=== PATIENT | female | born 1945 | race African-American/Black ===

== ENCOUNTER 2025-02-10 18:36 | Inpatient (IN) | payer OTHER, MEDICAID ==
[~2025-02-10] VITALS: Ht 152.4 cm; Wt 81.5 kg
[2025-02-10 18:55] VITALS: PULSE 130; RESP 17; O2SAT 96
[2025-02-10 19:19] VITALS: PULSE 123; RESP 13; O2SAT 97
[2025-02-10] MEDS: SODIUM CHLORIDE 0.9% 1,000 ML IV ONE (19:30)
[2025-02-10] MEDS: INSULIN LANTUS (GLARGINE) 1 /0.01ml (100units/ml) SC ONE (19:45)
[2025-02-10] MEDS ORDERED: DEXTROSE (50%) 50ML SYRG IV PRN (19:45)
[2025-02-10 19:57] LABS: Hematocrit 43.2 % (36.0-46.0); Hemoglobin 14.0 g/dL (12.2-16.2); Mean Corpuscular Hemoglobin 29.1 pg (28.0-32.0); Mean Corpuscular Volume 89.8 fL (80.0-100.0); Nucleated Red Blood Cells % 0.1 %
[2025-02-10 20:00] VITALS: PULSE 70
--- NOTE | 2025-02-10 20:00 | ED.PDOC ---
History of present illness HPI Comments 79 y/o F, with PMHx of DM, presents to the ED for CC of hyperglycemia. EMS reports, patient is coming from home where family called d/t patient being lethargic and unarousable. Per EMS, patient's blood sugar read high on glucometer which only reads up to 600. Per family, patient suffers from frequent hyperglycemic episodes and blood sugar runs in the 400's on baseline. Upon arrival to the ED, patient is A&Ox2 and history is limited. 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 Family History Family History: Unknown Social History Smoker: Non-Smoker Alcohol: Denies ETOH Use Drugs: Denies Drug Use Lives In: Home Unable to Obtain due to: Other (hyperglycemia, a&ox2) Physical Exam General Appearance: No Apparent Distress, Normal, Other (lethargic) HEENT: Normal ENT Inspection, Pharynx Normal Neck: Full Range of Motion, Non-Tender, Normal, Normal Inspection Respiratory: Chest Non-Tender, Lungs Clear, No Accessory Muscle Use, No R espiratory Distress, Normal Breath Sounds Cardiovascular: No Edema, No Murmur, No Gallop, Normal Peripheral Pulses, Regular Rate/Rhythm Breast Exam: Deferred Gastrointestinal: No Organomegaly, Non Tender, No Pulsatile Mass, Normal Bowel Sounds, Soft Genitalia: Deferred Pelvic: Deferred Rectal: Deferred Extremities: No calf tenderness, Normal capillary refill, Normal inspection, Normal range of motion, Non-tender, No pedal edema Musculoskeletal : Apperance: Normal Neurologic: compensation expert II-XII nml as Tested, No Motor Deficits, Normal Affect, Normal Mood, No Sensory Deficits, Other (A&Ox2) Cerebellar Function: Normal Reflexes: Normal Skin: Dry, Normal Color, Warm Lymphatic: No Adenopathy Was a procedure done? Was a procedure done?: No Differential Diagnosis (DM) Differential Diagnosis: Dehydration, Diabetic Coma, DKA, Electrolyte Abnormality, Encephalopathy, Hyperglycemia, Hyperosmolar State, UTI X-Ray, Labs, Meds, VS Vital Signs Date Time Temp Pulse Resp B/P (MAP) Pulse Ox O2 Delivery O2 Flow Rate FiO2 02/10/25 23:30 117 15 99/57 (71) 98 02/10/25 23:00 123 17 112/66 (81) 98 02/10/25 22:45 120 15 104/60 (75) 98 02/10/25 22:30 123 15 110/60 (77) 97 02/10/25 22:15 122 15 110/60 (77) 97 02/10/25 22:00 120 15 101/60 (74) 97 02/10/25 21:45 120 15 92/59 (70) 98 02/10/25 21:24 123 17 118/65 (82) 97 02/10/25 19:19 123 13 97 Room Air* 2 N/A Nasal Cannula* Bi-Pap+ 02/10/25 19:18 98.5 128 16 111/63 (79) 98.5 02/10/25 19:01 97.6 133 19 120/78 95 97.6 02/10/25 18:55 98.0 130 17 131/70 (90) 96 98.0 02/10/25 18:55 130 17 96 Nasal Cannula* 2 28 Lab Test 02/10/25 22:33 02/10/25 21:57 02/10/25 20:41 02/10/25 20:18 Range/Units POC Glucose 182 H 219 H 326 H 70-106 mg/dl Troponin I High Sensitivity 21 </=34 ng/L Test 02/10/25 19:44 Range/Units White Blood Count 8.1 4.4-10.8 10^3/uL Red Blood Count 4.80 4.0-5.20 10^6/uL Hemoglobin 14.0 12.2-16.2 g/dL Hematocrit 43.2 36.0-46.0 % Mean Corpuscular Volume 89.8 80.0-100.0 fL Mean Corpuscular Hemoglobin 29.1 28.0-32.0 pg Mean Corpuscular Hemoglobin Concent 32.4 32.0-36.0 g/dL Red Cell Distribution Width 14.2 11.8-14.3 % Platelet Count 247 140-450 10^3/uL Mean Platelet Volume 8.8 6.9-10.8 fL Neutrophils (%) (Auto) 80.0 37.0-80.0 % Lymphocytes (%) (Auto) 11.1 10.0-50.0 % Monocytes (%) (Auto) 8.4 0.0-12.0 % Eosinophils (%) (Auto) 0.0 0.0-7.0 % Basophils (%) (Auto) 0.5 0.0-2.0 % Neutrophils # (Auto) 6.5 1.6-8.6 10 ^3/uL Lymphocytes # (Auto) 0.9 0.4-5.4 10 ^3/uL Monocytes # (Auto) 0.7 0-1.3 10 ^3/uL Eosinophils # (Auto) 0 0-0.8 10 ^3/uL Basophils # (Auto) 0 0-0.2 10 ^3/uL Nucleated Red Blood Cells 0.1 % Sodium Level 144 136-145 mmol/L Potassium Level 4.5 3.5-5.1 mmol/L Chloride Level 105 98-107 mmol/L Carbon Dioxide Level < 10 *L 20-31 mmol/L Anion Gap 29.37914 H 5-15 Blood Urea Nitrogen 38 H 9-23 mg/dL Creatinine 2.67 H 0.550-1.02 mg/dL Glomerular Filtration Rate Calc 18 >90 mL/min BUN/Creatinine Ratio 14.2 10.0-20.0 Serum Glucose 387 H 74-106 mg/dL Calcium Level 10.2 8.7-10.4 mg/dL Troponin I High Sensitivity 19 </=34 ng/L Current Medications Medications (Trade) Dose Ordered Sig/Tino Route Start Time Stop Time Status Last Admin Sodium Chloride 1,000 ml @ 150 mls/hr Q6H40M ONCE IV 02/10/25 19:30 02/11/25 02:09 02/10/25 19:30 Insulin Human (Reg)/Sodium Chloride 100 ml @ 0.5 mls/hr Q24H IV 02/10/25 19:45 02/10/25 21:03 Insulin Glargine (Lantus) 15 units ONCE ONCE SC 02/10/25 19:45 02/10/25 19:57 DC 02/10/25 19:45 Diagnostic Test (Pha) (Accu-Chek Comfort Curve T) 1 strip Q90MIN 02/10/25 22:30 02/11/25 00:[address] [address] Ph: [phone] DIAGNOSTIC IMAGING Diagnostic Imaging Report : [id number] Signed PATIENT: ANALIA WYATT ACCT: [id number] UNIT: [id number] : 1945 LOC: ER ROOM / BED: / AGE / SEX: 79 / F ADM STATUS: REG ER SERVICE 28 ORDERING PHYSICIAN: JOSIAH HUYNH MD PROCEDURE(s): CXRP - CHEST PORTABLE REASON: altered ORDER NUMBER(s): [id number], ACCESSION NUMBER(s): [id number] CHEST RADIOGRAPH INDICATION: altered TECHNIQUE: Single frontal view of the chest was obtained COMPARISON: None FINDINGS: Lines and Tubes: Metallic device over the right clavicle correlate clinically for postsurgical change versus artifact overlying the clavicle. Lungs: No focal consolidation. Pleura: No effusion. No pneumothorax. Cardiomediastinal contours: Unremarkable Bones: No acute osseous abnormality. IMPRESSION: 1. No acute cardiopulmonary disease. 2. Questionable artifact over the right clavicle. ATED BY: VIDAL BRADY Jr., DO DICTATED DATE/TIME: 02/10/252012 SIGNED BY: VIDAL BRADY Jr., SIGNED DATE/TIME: 02/10/252012 CC: [address] [address] Ph: [phone] DIAGNOSTIC IMAGING Diagnostic Imaging Report : [id number] Signed PATIENT: ANALIA WYATT ACCT: [id number] UNIT: [id number] : 1945 LOC: ER ROOM / BED: / AGE / SEX: 79 / F ADM STATUS: REG ER SERVICE 28 ORDERING PHYSICIAN: JOSIAH HUYNH MD PROCEDURE(s): HWOCT - HEAD WITHOUT CONTRAST REASON: altered ORDER NUMBER(s): [id number], ACCESSION NUMBER(s): [id number] EXAM: CT HEAD WITHOUT CONTRAST INDICATION: altered TECHNIQUE: CT of the head without intravenous contrast. Radiation Dose Information: CT Dose: CTDI volume is 58.97 mGy. Dose-length product is 1044.17 mGy*cm The dose indicators for CT are the volume Computed Tomography (CT) Dose Index (CTDIvol) and the Dose Length Product (DLP), and are measured in units of mGy and mGy-cm, respectively. These indicators are not patient dose, but values generated from the CT scanner acquisition factors. The report includes radiation exposure data for exposures received during this examination. COMPARISON: None FINDINGS: There is no evidence of acute intracranial hemorrhage, extra-axial collection, mass effect, midline shift, herniation or hydrocephalus. The ventricles, sulci and cisterns are age appropriate. The murillo-white differentiation is intact. Patchy periventricular and subcortical white matter hypoattenuation is nonspecific but may be related to small vessel ischemic disease. The visualized paranasal sinuses and mastoid air cells are clear. The surrounding soft tissues and osseous structures are unremarkable. IMPRESSION: No acute intracranial abnormality. ATED BY: LARRY GABRIEL MD DICTATED DATE/TIME: 02/10/252012 SIGNED BY: LARRY GABRIEL MD SIGNED DATE/TIME: 02/10/252012 CC: Time of 1ST Reevaluation: 20:10 Reevaluation 1ST: Unchanged Patient Education/Counseling: Diagnosis, Treatment Family Education/Counseling: No Family Present Comments This is a patient who is diabetic who presents with altered mental status. According to the family patient has not been eating very well and has been more lethargic over the course of the day. She presents with DKA. Her workup is consistent with DKA however there is no apparent source of infection at this time. She is on DKA protocol with IV infusion and insulin drip. Her blood pressure was initially very low and now has improved. She is still very tachycardic. Overall patient in is improved but unstable. She will be admitted for further treatment of DKA. Dr Llamas from [facility] authorized to admit pt here. #[id number] Additional Information The following tests were ordered, and results were reviewed by me: TROPONIN X3, CBC, UA, BMP, HEAD CT, CXR Additional information was gathered from interviewing the following independent historian: FAMILY, EMS I reviewed and agreed with the following test results read by other provider: HEAD CT, CXR I discussed treatments and results with medical personnel and: FAMILY Comprehensive systems review obtained and negative except for what is stated in the HPI. SEPSIS Sepsis Screen Date sepsis recognized/suspect: Feb 10, 2025 Time Sepsis recognized/suspect: 1835 Recent Procedure: No On Antibiotic Therapy: No Respiratory Rate >20: No Heart Rate >90: Yes Temp<36 C (96.8 F) or >38.3 C: No SBP <90 or MAP <65 mmHG: No New Acute Mental Status Change: Yes Is the patient on CPAP, BIPAP,: No Physician Orders Chest Portable (02/10/25 19:29) Urinalysis (02/10/25 19:) Sodium Chloride 0.9% (02/10/25 19:30) Head Without Contrast (02/10/25:) Electrocardigram (02/10/25:29) Continuous Ekg Monitoring 08,12,16,20,00,04 (02/10/25 19:29) Accucheck (02/10/25 20:00) Accucheck (02/10/25 21:00) Accucheck (02/10/25 22:00) Accucheck (02/10/25 23:00) Accucheck (02/11/25 00:00) Accucheck (02/11/25 01:00) Accucheck (02/11/25 02:00) Accucheck (02/11/25 03:00) Accucheck (02/11/25 04:00) Accucheck (02/11/25 05:00) Accucheck (02/11/25 06:00) Accucheck (02/11/25 07:00) Accucheck (02/11/25 08:00) Accucheck (02/11/25 09:00) Accucheck (02/11/25 10:00) Accucheck (02/11/25 11:00) Accucheck (02/11/25 12:00) Accucheck (02/11/25 13:00) Accucheck (02/11/25 14:00) Accucheck (02/11/25 15:00) Accucheck (02/11/25 16:00) Accucheck (02/11/25 17:00) Accucheck (02/11/25 18:00) Accucheck (02/11/25 19:00) Accucheck (02/11/25 20:00) Accucheck (02/11/25 21:00) Accucheck (02/11/25 22:00) Accucheck (02/11/25 23:00) Insert Mcgee Catheter QSHIFT (02/10/25 19:29) Electrocardigram (02/10/25 20:29) Electrocardigram (02/10/25 22:29) Insulin Drip 100 Unit/100ml (Myxredlin 1 (02/10/25 19:45) D/C All Diabetic Medications (02/10/25 19:33) Insulin Drip Protocol (02/10/25 19:33) Dextrose 50% Syringe (02/10/25 19:45) Insulin Lantus (Glargine) (Lantus) (02/11/25 10:00) Glucose Blood (Accu-Chek Comfort Curve T (02/10/25 22:30) Vital Signs Date Time Temp Pulse Resp B/P (MAP) Pulse Ox O2 Delivery O2 Flow Rate FiO2 02/10/25 23:30 117 15 99/57 (71) 98 02/10/25 23:00 123 17 112/66 (81) 98 02/10/25 22:45 120 15 104/60 (75) 98 02/10/25 22:30 123 15 110/60 (77) 97 02/10/25 22:15 122 15 110/60 (77) 97 02/10/25 22:00 120 15 101/60 (74) 97 02/10/25 21:45 120 15 92/59 (70) 98 02/10/25 21:24 123 17 118/65 (82) 97 02/10/25 19:19 123 13 97 Room Air* 2 N/A Nasal Cannula* Bi-Pap+ 02/10/25 19:18 98.5 128 16 111/63 (79) 98.5 02/10/25 19:01 97.6 133 19 120/78 95 97.6 02/10/25 18:55 98.0 130 17 131/70 (90) 96 98.0 02/10/25 18:55 130 17 96 Nasal Cannula* 2 28 Laboratory Tests Test 02/10/25 19:44 White Blood Count 8.1 10^3/uL (4.4-10.8) Medications Medications Dose Ordered Sig/Tino Route Start Time Stop Time Status Last Admin Dose Admin Diagnostic Test (Pha) 1 strip Q90MIN 02/10/25 22:30 02/11/25 00:07 Insulin Glargine 15 units ONCE ONCE SC 02/10/25 19:45 02/10/25 19:57 DC 02/10/25 19:45 Insulin Human (Reg)/Sodium Chloride 100 ml @ 0.5 mls/hr Q24H IV 02/10/25 19:45 02/10/25 21:03 Sodium Chloride 1,000 ml @ 150 mls/hr Q6H40M ONCE IV 02/10/25 19:30 02/11/25 02:09 02/10/25 19:30 Departure 1 Departure Time of Disposition: 23:42 Impression: Primary Impression: DKA, type 1 Additional Impressions: Metabolic encephalopathy Dehydration Renal failure Disposition: ADMITTED INPATIENT Admit to: ICU Condition: Serious Discharged With: Self, Relative Critical Care Note Critical Care Time?: Yes (55 min-critical care time only) Critical care comment: Total critical care time: Approximately 55 minutes Due to a high probability of clinically significant, life threatening deterioration, the patient required my highest level of preparedness to intervene emergently and I personally spent this critical care time directly and personally managing the patient. This critical care time included obtaining a history; examining the patient; pulse oximetry; ordering and review of studies; arranging urgent treatment with development of a management plan; evaluation of patient's response to treatment; frequent reassessment; and, discussions with other providers. This critical care time was performed to assess and manage the high probability of imminent, life-threatening deterioration that could result in multi-organ failure. It was exclusive of separately billable procedures and treating other patients. Stability Stability form required: No Heart Score Heart Score: Heart Score Response (Comments) Value History N/A 0 EKG N/A 0 Age N/A 0 Risk Factors N/A 0 Troponin N/A 0 Total 0 I personally scribed for JOSIAH HUYNH MD ([email or web address]) on 02/10/25 at 20:00. Electronically submitted by Jessica Pleitez ([email or web address]). I personally scribed for JOSIAH HUYNH MD ([facility]) on 02/10/25 at 20:10. Electronically submitted by Jessica Pleitez ([email or web address]). I personally scribed for JOSIAH HUYNH MD ([facility]) on 02/10/25 at 20:11. El ectronically submitted by Jessica Pleitez ([email or web address]). I personally scribed for JOSIAH HUYNH MD ([facility]) on 02/10/25 at 20:41. Elect ronically submitted by Jessica Pleitez ([email or web address]). I personally scribed for JOSIAH HUYNH MD ([facility]) on 02/10/25 at 20:41. Electronically submitted by Jessica Pleitez ([email or web address]). JOSIAH HUYNH MD Feb 10, 2025 20:00
[2025-02-10 20:04] LABS: Chloride 105 mmol/L (98-107); Potassium 4.5 mmol/L (3.5-5.1); Sodium 144 mmol/L (136-145)
[2025-02-10 20:05] LABS: Anion Gap 29.00001 (5-15); Calcium 10.2 mg/dL (8.7-10.4)
[2025-02-10 20:10] LABS: BUN/Creatinine Ratio 14.2 (10.0-20.0)
--- NOTE | 2025-02-10 20:15 | DVH ---
CHEST RADIOGRAPH INDICATION: altered TECHNIQUE: Single frontal view of the chest was obtained COMPARISON: None FINDINGS: Lines and Tubes: Metallic device over the right clavicle correlate clinically for postsurgical change versus artifact overlying the clavicle. Lungs: No focal consolidation. Pleura: No effusion. No pneumothorax. Cardiomediastinal contours: Unremarkable Bones: No acute osseous abnormality. IMPRESSION: 1. No acute cardiopulmonary disease. 2. Questionable artifact over the right clavicle.
--- NOTE | 2025-02-10 20:16 | DVH ---
EXAM: CT HEAD WITHOUT CONTRAST INDICATION: altered TECHNIQUE: CT of the head without intravenous contrast. Radiation Dose Information: CT Dose: CTDI volume is 58.97 mGy. Dose-length product is 1044.17 mGy*cm The dose indicators for CT are the volume Computed Tomography (CT) Dose Index (CTDIvol) and the Dose Length Product (DLP), and are measured in units of mGy and mGy-cm, respectively. These indicators are not patient dose, but values generated from the CT scanner acquisition factors. The report includes radiation exposure data for exposures received during this examination. COMPARISON: None FINDINGS: There is no evidence of acute intracranial hemorrhage, extra-axial collection, mass effect, midline shift, herniation or hydrocephalus. The ventricles, sulci and cisterns are age appropriate. The murillo-white differentiation is intact. Patchy periventricular and subcortical white matter hypoattenuation is nonspecific but may be related to small vessel ischemic disease. The visualized paranasal sinuses and mastoid air cells are clear. The surrounding soft tissues and osseous structures are unremarkable. IMPRESSION: No acute intracranial abnormality.
[2025-02-10 20:22] LABS: Blood Urea Nitrogen 38 mg/dL (9-23); Glucose 387 mg/dL (74-106)
[2025-02-10 20:23] LABS: Carbon Dioxide < 10 mmol/L (20-31)
[2025-02-10] MEDS: INSULIN DRIP 100 UNIT/100ML 100 ML IV SCH (21:03)
[2025-02-10] MEDS: ACCU-CHEK COMFORT CURVE STRIP VI SCH (22:35)
[2025-02-11] VITALS: PULSE 72
[2025-02-11] MEDS ORDERED: ONDANSETRON HCL 4 MG/2 ML VIAL IV PRN (01:00)
[2025-02-11] MEDS ORDERED: NITROGLYCERIN 0.4 MG SL TAB SL PRN (01:00)
[2025-02-11] MEDS ORDERED: MORPHINE SULFATE INJ 2 MG/ml SYRG IV PRN (01:00)
[2025-02-11] MEDS ORDERED: DEXTROSE (50%) 50ML SYRG IV PRN ×2 (01:00→12:15)
[2025-02-11] MEDS: SODIUM CHLORIDE 0.9% 1,000 ML IV SCH (01:00)
[2025-02-11] MEDS ORDERED: INSULIN LANTUS (GLARGINE) 1 /0.01ml (100units/ml) SC ONE (01:00)
[2025-02-11 01:27] LABS: Base Excess -12.6 mmol/L (-2.0-3.0)
[2025-02-11] MEDS: INSULIN DRIP 100 UNIT/100ML 100 ML IV SCH (01:30)
[2025-02-11] MEDS: ACCU-CHEK COMFORT CURVE STRIP VI SCH ×2 (01:35→16:00)
[2025-02-11 01:49] LABS: Potassium 4.2 mmol/L (3.5-5.1)
[2025-02-11 01:50] LABS: Anion Gap 17 (5-15)
[2025-02-11 01:51] LABS: Calcium 10.1 mg/dL (8.7-10.4)
[2025-02-11 01:53] LABS: Carbon Dioxide 15 mmol/L (20-31); Chloride 114 mmol/L (98-107); Sodium 146 mmol/L (136-145)
[2025-02-11 01:55] LABS: BUN/Creatinine Ratio 10.0 (10.0-20.0)
[2025-02-11 02:01] LABS: Blood Urea Nitrogen 27 mg/dL (9-23); Glucose 124 mg/dL (74-106)
--- NOTE | 2025-02-11 04:01 | DVHHP2 ---
History of Present Illness Reason for Visit: Hyperglycemia History of Present Illness 79-year-old female presents for evaluation of hyperglycemia. Patient presents for evaluation after family noted patient progressively becoming more lethargic and difficult to arouse. When they checked her blood sugar was reading high. In route patient's blood sugar was greater than 600. Patient denies abdominal pain, nausea or vomiting. Past Medical History Diabetes mellitus Past Surgical History Denies Family History Noncontributory Smoke: No ALCOHOL: none Drugs: None Lives: with Family Review of Systems Review of Systems Review of systems are currently negative otherwise addressed in HPI. Allergies: Coded Allergies: NO KNOWN ALLERGIES (Unverified , 02/10/25) Medications Current Medications Medications Dose Ordered Sig/Tino Route Start Time Stop Time Status Last Admin Dose Admin Sodium Chloride 1,000 ml @ 500 mls/hr Q2H IV 02/11/25 01:00 02/11/25 04:59 Insulin Human (Reg)/Sodium Chloride 100 ml @ 0.5 mls/hr Q24H IV 02/11/25 01:00 02/11/25 01:30 0.5 MLS/HR Dextrose 50 ml UD PRN IV 02/11/25 01:00 Diagnostic Test (Pha) 1 strip Q90MIN 02/11/25 01:30 02/11/25 03:00 1 STRIP Insulin Glargine 15 units DAILY SC 02/12/25 10:00 Ondansetron HCl 4 mg Q4HP PRN IV 02/11/25 01:00 Nitroglycerin 0.4 mg Q5MINP PRN SL 02/11/25 01:00 Morphine Sulfate 2 mg Q30M PRN IV 02/11/25 01:00 Exam Vital Signs Vital Signs Date Time Temp Pulse Resp B/P (MAP) Pulse Ox O2 Delivery O2 Flow Rate FiO2 02/11/25 02:30 117 12 119/64 (82) 97 02/10/25 19:19 Room Air* 2 N/A Nasal Cannula* Bi-Pap+ 02/10/25 19:18 98.5 98.5 Exam Gen: 79-year-old female in mild distress Skin: Warm, dry, normal color and texture, no rash. HEENT: Normocephalic atraumatic, mucous membranes moist and pink. Neck: Cervical and supraclavicular nodes normal without enlargement, trachea is midline, thyroid gland is normal without masses. Pulmonary: Clear to auscultation and percussion bilaterally. Cardiac: Regular rate and rhythm. No murmur Abdomen: Soft, nontender, nondistended, bowel sounds present all 4 quadrants, no guarding, no rigidity, no organomegaly. Extremities: No cyanosis, clubbing, no edema Neuro: Cranial nerves II through XII grossly intact, normal affect and speech, n o focal motor deficits. Labs/Xrays ORDERING PHYSICIAN: JOSIAH HUYNH MD PROCEDURE(s): CXRP - CHEST PORTABLE REASON: altered ORDER NUMBER(s): [id number], ACCESSION NUMBER(s): [id number] CHEST RADIOGRAPH INDICATION: altered TECHNIQUE: Single frontal view of the chest was obtained COMPARISON: None FINDINGS: Lines and Tubes: Metallic device over the right clavicle correlate clinically for postsurgical change versus artifact overlying the clavicle. Lungs: No focal consolidation. Pleura: No effusion. No pneumothorax. Cardiomediastinal contours: Unremarkable Bones: No acute osseous abnormality. IMPRESSION: 1. No acute cardiopulmonary disease. 2. Questionable artifact over the right clavicle. RING PHYSICIAN: JOSIAH HUYNH MD PROCEDURE(s): HWOCT - HEAD WITHOUT CONTRAST REASON: altered ORDER NUMBER(s): [id number], ACCESSION NUMBER(s): [id number] EXAM: CT HEAD WITHOUT CONTRAST INDICATION: altered TECHNIQUE: CT of the head without intravenous contrast. Radiation Dose Information: CT Dose: CTDI volume is 58.97 mGy. Dose-length product is 1044.17 mGy*cm The dose indicators for CT are the volume Computed Tomography (CT) Dose Index (CTDIvol) and the Dose Length Product (DLP), and are measured in units of mGy and mGy-cm, respectively. These indicators are not patient dose, but values generated from the CT scanner acquisition factors. The report includes radiation exposure data for exposures received during this examination. COMPARISON: None FINDINGS: There is no evidence of acute intracranial hemorrhage, extra-axial collection, mass effect, midline shift, herniation or hydrocephalus. The ventricles, sulci and cisterns are age appropriate. The murillo-white differentiation is intact. Patchy periventricular and subcortical white matter hypoattenuation is nonspecific but may be related to small vessel ischemic disease. The visualized paranasal sinuses and mastoid air cells are clear. The surrounding soft tissues and osseous structures are unremarkable. IMPRESSION: No acute intracranial abnormality. Labs Test 02/11/25 02:58 02/11/25 01:24 02/11/25 01:18 02/10/25 20:41 Range/Units POC Glucose 117 H 70-106 mg/dl Sodium Level 146 H 136-145 mmol/L Potassium Level 4.2 3.5-5.1 mmol/L Chloride Level 114 H 98-107 mmol/L Carbon Dioxide Level 15 L 20-31 mmol/L Anion Gap 17 H 5-15 Blood Urea Nitrogen 27 #H 9-23 mg/dL Creatinine 2.71 H 0.550-1.02 mg/dL Glomerular Filtration Rate Calc 17 >90 mL/min BUN/Creatinine Ratio 10.0 10.0-20.0 Serum Glucose 124 H 74-106 mg/dL Serum Osmolality 339 H 278-298 mOsm/kg Calcium Level 10.1 8.7-10.4 mg/dL Blood Gas Specimen Type Arterial Blood Gas Sample Site Right radial Blood Gas Patient Temperature 37.0 Arterial Blood Date Drawn Arterial Blood pH 7.295 L 7.350-7.450 Arterial Blood Partial Pressure CO2 25.3 L 32.0-45.0 mmHg Arterial Blood Partial Pressure O2 125.1 H 83.0-108.0 mmHg Arterial Blood HCO3 12.0 L 21.0-28.0 mmol/L Arterial Blood Oxygen Saturation 97.8 94.0-98.0 % Arterial Blood Base Excess -12.6 L -2.0-3.0 mmol/L Arterial Blood Oxyhemoglobin 96.6 94.0-98.0 % Arterial Blood Carboxyhemoglobin 0.9 0.5-1.5 % Arterial Blood Methemoglobin 0.3 0.0-1.5 % Arterial Blood Deoxyhemoglobin 2.2 0.0-5.0 % Anthony Test Positive Blood Gas Total Hemoglobin 14.20 12.0-16.0 g/dL Blood Gas Liter Flow 2.00 Blood Gas Modality Nasal cannula FiO2 % 29.0 Troponin I High Sensitivity 21 </=34 ng/L Beta-Hydroxybutyric Acid > 4.500 H < 0.4 mmol/L Test 02/10/25 19:44 Range/Units White Blood Count 8.1 4.4-10.8 10^3/uL Red Blood Count 4.80 4.0-5.20 10^6/uL Hemoglobin 14.0 12.2-16.2 g/dL Hematocrit 43.2 36.0-46.0 % Mean Corpuscular Volume 89.8 80.0-100.0 fL Mean Corpuscular Hemoglobin 29.1 28.0-32.0 pg Mean Corpuscular Hemoglobin Concent 32.4 32.0-36.0 g/dL Red Cell Distribution Width 14.2 11.8-14.3 % Platelet Count 247 140-450 10^3/uL Mean Platelet Volume 8.8 6.9-10.8 fL Neutrophils (%) (Auto) 80.0 37.0-80.0 % Lymphocytes (%) (Auto) 11.1 10.0-50.0 % Monocytes (%) (Auto) 8.4 0.0-12.0 % Eosinophils (%) (Auto) 0.0 0.0-7.0 % Basophils (%) (Auto) 0.5 0.0-2.0 % Neutrophils # (Auto) 6.5 1.6-8.6 10 ^3/uL Lymphocytes # (Auto) 0.9 0.4-5.4 10 ^3/uL Monocytes # (Auto) 0.7 0-1.3 10 ^3/uL Eosinophils # (Auto) 0 0-0.8 10 ^3/uL Basophils # (Auto) 0 0-0.2 10 ^3/uL Nucleated Red Blood Cells 0.1 % SEPSIS Sepsis Screen Date sepsis recognized/suspect: Feb 10, 2025 Time Sepsis recognized/suspect: 1917 Recent Procedure: No On Antibiotic Therapy: No Respiratory Rate >20: No Heart Rate >90: Yes Temp<36 C (96.8 F) or >38.3 C: No SBP <90 or MAP <65 mmHG: No New Acute Mental Status Change: No Is the patient on CPAP, BIPAP,: No Physician Orders Sodium Chloride 0.9% (02/11/25 01:00) Insulin Drip 100 Unit/100ml (Myxredlin 1 (02/11/25 01:00) Dextrose 50% Syringe (02/11/25 01:00) Abg W/ Co-Ox (02/11/25 01:00) Basic Metabolic Panel (02/11/25 07:00) Basic Metabolic Panel (02/11/25 13:00) Basic Metabolic Panel (02/11/25 19:00) Urinalysis (02/11/25 01:00) Insulin Lantus (Glargine) (Lantus) (02/12/25 10:00) Admit (02/11/25 01:00) Ondansetron Hcl (Zofran) (02/11/25 01:00) Complete Blood Count (02/12/25 04:00) Comprehensive Metabolic Panel (02/12/25 04:00) Npo (Nothing By Mouth) Diet (02/11/25 Breakfast) Condition: Critical (02/11/25 01:00) Bedrest With Bathroom Privileg (02/11/25 01:00) Nitroglycerin Sublingual (Ntrostat Subli (02/11/25 01:00) Morphine Sulfate Injection (02/11/25 01:00) Stat Ekg For Chest Pain (02/11/25 01:00) Notify Of Changes From Base (02/11/25 01:00) Technical Recruiter For 24 Hours (02/11/25 01:00) Emergency Dysrhythmia Protocol (02/11/25 01:00) Rhythm Strips Once Every Shift (02/11/25 01:00) Oxygen By Nasal Cannula (02/11/25 01:00) Glucose Blood (Accu-Chek Comfort Curve T (02/11/25 01:30) Vital Signs Date Time Temp Pulse Resp B/P (MAP) Pulse Ox O2 Delivery O2 Flow Rate FiO2 02/11/25 02:30 117 12 119/64 (82) 97 02/11/25 02:15 117 14 112/58 (76) 97 02/11/25 02:00 118 14 124/63 (83) 98 02/11/25 01:45 119 10 124/55 (78) 98 02/11/25 01:30 119 17 98/48 (65) 98 02/11/25 01:15 118 12 113/60 (77) 97 02/11/25 01:00 118 12 107/56 (73) 95 02/11/25 01:00 118 9 107/56 (73) 95 02/11/25 00:45 118 14 91/40 (57) 96 02/11/25 00:30 119 13 97/67 (77) 97 02/11/25 00:15 116 13 116/65 (82) 97 02/11/25 00:00 121 14 119/59 (79) 98 02/10/25 23:45 117 14 98/57 (71) 97 02/10/25 23:30 117 15 99/57 (71) 97 02/10/25 23:30 117 15 99/57 (71) 98 02/10/25 23:00 123 17 112/66 (81) 98 02/10/25 22:45 120 15 104/60 (75) 98 02/10/25 22:30 123 15 110/60 (77) 97 02/10/25 22:15 122 15 110/60 (77) 97 02/10/25 22:00 120 15 101/60 (74) 97 02/10/25 21:45 120 15 92/59 (70) 98 02/10/25 21:24 123 17 118/65 (82) 97 Laboratory Tests Test 02/10/25 19:44 White Blood Count 8.1 10^3/uL (4.4-10.8) Medications Medications Dose Ordered Sig/Tino Route Start Time Stop Time Status Last Admin Dose Admin Diagnostic Test (Pha) 1 strip Q90MIN 02/10/25 22:30 02/11/25 01:06 DC 02/11/25 00:07 1 STRIP Diagnostic Test (Pha) 1 strip Q90MIN 02/11/25 01:30 02/11/25 03:00 1 STRIP Insulin Glargine 15 units ONCE ONCE SC 02/10/25 19:45 02/10/25 19:57 DC 02/10/25 19:45 15 UNITS Insulin Human (Reg)/Sodium Chloride 100 ml @ 0.5 mls/hr Q24H IV 02/10/25 19:45 02/11/25 01:06 DC 02/10/25 21:03 0.5 MLS/HR Insulin Human (Reg)/Sodium Chloride 100 ml @ 0.5 mls/hr Q24H IV 02/11/25 01:00 02/11/25 01:30 0.5 MLS/HR Sodium Chloride 1,000 ml @ 150 mls/hr Q6H40M ONCE IV 02/10/25 19:30 02/11/25 02:09 DC 02/10/25 19:30 150 MLS/HR Assessment/Plan Assessment/Plan Assessment Diabetic ketoacidosis Severe dehydration Acute kidney injury Plan Admit the patient to [facility] to the hospitalist DKA protocol Continue treatment per orders Total critical care time excluding procedures performed this 50 minutes Plan discussed with: Patient My Orders Orders - [facility]UB[facility]IG[facility] Procedure Category Date Status Time Sodium Chloride 0.9% PHA 02/11/25 In Process 01:00 Insulin Drip 100 PHA 02/11/25 In Process Unit/100ml (Myxredlin 01:00 Dextrose 50% Syringe PHA 02/11/25 In Process 01:00 Abg W/ Co-Ox RT 02/11/25 Logged 01:00 Basic Metabolic Panel LAB 02/11/25 Logged 07:00 Basic Metabolic Panel LAB 02/11/25 Logged 13:00 Basic Metabolic Panel LAB 02/11/25 Logged 19:00 Urinalysis LAB 02/11/25 Logged 01:00 Insulin Lantus PHA 02/12/25 In Process (Glargine) (Lantus) 10:00 Admit ADMIT 02/11/25 Transmitted 01:00 Ondansetron Hcl PHA 02/11/25 In Process (Zofran) 01:00 Complete Blood Count LAB 02/12/25 Verified 04:00 Comprehensive LAB 02/12/25 Verified Metabolic Panel 04:00 Npo (Nothing By DIET 02/11/25 Transmitted Mouth) Diet Breakfast Condition: Critical AURELIA 02/11/25 In Process 01:00 Bedrest With Bathroom AURELIA 02/11/25 In Process Privileg 01:00 Nitroglycerin PHA 02/11/25 In Process Sublingual (Ntrostat 01:00 Morphine Sulfate PHA 02/11/25 In Process Injection 01:00 Stat Ekg For Chest AURELIA 02/11/25 In Process Pain 01:00 Notify Of Changes AURELIA 02/11/25 In Process From Base 01:00 Technical Recruiter For AURELIA 02/11/25 In Process 24 Hours 01:00 Emergency Dysrhythmia AURELIA 02/11/25 In Process Protocol 01:00 Rhythm Strips Once AURELIA 02/11/25 In Process Every Shift 01:00 Oxygen By Nasal RT 02/11/25 Transmitted Cannula 01:00 Glucose Blood PHA 02/11/25 In Process (Accu-Chek Comfort 01:30 Date of Service: Feb 11, 2025 Billing Provider: LIGIA TUBBS Common Visit Codes: [id number] CARE 30-74 MIN LIGIA TUBBS Feb 11, 2025 04:01
[2025-02-11 05:06] LABS: Urine Budding Yeast MANY /hpf (None Seen); Urine Protein, UAD 3+ (Negative); Urine WBC Clumps PRESENT /hpf (None Seen)
[2025-02-11] MEDS: SODIUM CHLORIDE 0.9% 500 ML IV ONE (06:20)
[2025-02-11 07:20] LABS: Potassium 4.5 mmol/L (3.5-5.1)
[2025-02-11 07:21] LABS: Anion Gap 11 (5-15); Calcium 10.0 mg/dL (8.7-10.4)
[2025-02-11 07:26] LABS: BUN/Creatinine Ratio 13.0 (10.0-20.0)
[2025-02-11 07:28] LABS: Blood Urea Nitrogen 34 mg/dL (9-23); Carbon Dioxide 19 mmol/L (20-31); Chloride 117 mmol/L (98-107); Glucose 158 mg/dL (74-106); Sodium 147 mmol/L (136-145)
[2025-02-11 08:24] VITALS: PULSE 114; RESP 13; O2SAT 99
[2025-02-11] MEDS ORDERED: INSULIN LANTUS (GLARGINE) 1 /0.01ml (100units/ml) SC SCH (10:00)
--- NOTE | 2025-02-11 12:10 | DVHPN2 ---
Progress Note Date Seen: Feb 11, 2025 Medical Necessity Reason Pt with a Central, PICC or Fol: No Subjective Patient reports: No new complaints Review of Systems: HEENT:Normal, CVS:Normal, RESPIRATORY:Normal, GI:Normal, :Normal, MSK:Normal, NEURO:Normal Objective vital signs Vital Sign Date Time Temp Pulse Resp B/P (MAP) Pulse Ox O2 Delivery O2 Flow Rate FiO2 02/11/25 10:00 113 12 136/70 (92) 95 02/11/25 08:24 Room Air* 0 N/A Nasal Cannula* Bi-Pap+ 02/11/25 08:00 97.2 97.2 Total Intake and Output 02/10/25 02/10/25 02/11/25 15:00 23:00 07:00 Intake Total 1000 ml Output Total 40 ml Balance 960 ml medications Current Medications Medications Dose Ordered Sig/Tino Route Start Time Stop Time Status Last Admin Dose Admin Insulin Human (Reg)/Sodium Chloride 100 ml @ 0.5 mls/hr Q24H IV 02/11/25 01:00 02/11/25 01:30 0.5 MLS/HR Dextrose 50 ml UD PRN IV 02/11/25 01:00 Diagnostic Test (Pha) 1 strip Q90MIN 02/11/25 01:30 02/11/25 10:35 1 STRIP Insulin Glargine 15 units DAILY SC 02/12/25 10:00 Ondansetron HCl 4 mg Q4HP PRN IV 02/11/25 01:00 Nitroglycerin 0.4 mg Q5MINP PRN SL 02/11/25 01:00 Morphine Sulfate 2 mg Q30M PRN IV 02/11/25 01:00 Examination: GENERAL:Normal, HEENT:Normal, NECK:Normal, LUNGS:Normal, CVS:Normal, ABDOMEN:Normal, MSK:Normal, SKIN:Normal, NEURO:Normal, :Normal laboratory and microbiology Laboratory Tests 02/11/25 07:01 02/10/25 19:44 Test 02/11/25 07:01 Range/Units Serum Glucose 158 H 74-106 mg/dL Problem List/Assessment/Plan Problem List/Assessment/Plan #1 dka: lantus, ssi, ivf #2 acute renal failure ?vasomotor nephropathy #3 morbid obesity #4 htn #5 encephalopathy: metabolic #6 uti:iv rocephin Plan discussed with: Patient My Orders My Orders Orders - LIGIA MARTELL MD Procedure Category Date Status Time Consistent DIET 02/11/25 Transmitted Carb(Ccho)Diabetes Lunch 1/2 Ns PHA 02/11/25 Transmitted 12:15 Insulin Lantus PHA 02/11/25 Transmitted (Glargine) (Lantus) 22:00 Glucose Blood PHA 02/11/25 Transmitted (Accu-Chek Comfort 16:00 Moderate Insulin Ss PHA 02/11/25 Transmitted 16:00 Dextrose 50% Syringe PHA 02/11/25 Transmitted 12:15 Transfer Orders XFER 02/11/25 Transmitted 12:01 Urine Bacterial ANTOINETTE 02/11/25 Transmitted Culture 12:01 Ceftriaxone Ivpb PHA 02/12/25 Transmitted Rocephin 09:00 Ceftriaxone Ivpb PHA 02/11/25 Transmitted Rocephin 12:15 Magnesium LAB 02/12/25 Verified 05:00 Hemoglobin A1c LAB 02/12/25 Verified 06:00 Thyroid Stimulating LAB 02/12/25 Verified Hormone 05:00 Critical Care Time (mins): 39 (critical care time excluding procedures is 39 mins) Date of Service: Feb 11, 2025 Billing Provider: LIGIA MARTELL MD Common Visit Codes: [id number] CARE 30-74 MIN LIGIA MARTELL MD Feb 11, 2025 12:10
[2025-02-11] MEDS: SOD CHL 0.45% 1,000 ML IV SCH (13:32)
[2025-02-11] MEDS: InsuLIN REG 1unit/0.01ml Soln (100units/ml) SC SCH (16:51)
[2025-02-11 18:43] VITALS: BP 107/46; PULSE 114; RESP 15; TEMP 98.3; O2SAT 96
[2025-02-11 18:45] VITALS: BP 107/46; PULSE 114; RESP 15; TEMP 98.3; O2SAT 96
[2025-02-11] MEDS ORDERED: CEPH250C PO (18:59)
[2025-02-11] MEDS ORDERED: ATOR10TA PO (19:09)
[2025-02-11] MEDS ORDERED: LOSA-534 PO (19:09)
[2025-02-11] MEDS ORDERED: DABI150C5 PO (19:09)
[2025-02-11] MEDS ORDERED: LEVE500T40 PO (19:09)
[2025-02-11 20:00] VITALS: PULSE 72; PULSE 76; RESP 18
[2025-02-11 21:00] VITALS: BP 157/75; PULSE 18; RESP 15; TEMP 98.6; O2SAT 95
[2025-02-11] MEDS: INSULIN LANTUS (GLARGINE) 1 /0.01ml (100units/ml) SC SCH (22:00)
[2025-02-12] VITALS (10 sets, daily range): BP systolic 110–148; BP diastolic 49–84; PULSE 70–145; RESP 16–82; TEMP 97.5–98.3; O2SAT 95–98
[2025-02-12 07:29] LABS: Hematocrit 40.5 % (36.0-46.0); Hemoglobin 13.3 g/dL (12.2-16.2); Mean Corpuscular Hemoglobin 28.5 pg (28.0-32.0); Mean Corpuscular Volume 86.7 fL (80.0-100.0); Nucleated Red Blood Cells % 0.2 %
[2025-02-12 07:54] LABS: Albumin 4.4 g/dL (3.2-4.8); Alkaline Phosphatase 102 U/L (46-116); Anion Gap 13 (5-15); BUN/Creatinine Ratio 14.4 (10.0-20.0); Calcium 9.7 mg/dL (8.7-10.4); Magnesium 2.2 mg/dL (1.6-2.6); Potassium 4.5 mmol/L (3.5-5.1); Sodium 146 mmol/L (136-145); Total Protein 7.4 g/dL (5.7-8.2)
[2025-02-12 07:55] LABS: Alanine Aminotransferase < 9 U/L (7-40); Bilirubin, Total 0.4 mg/dL (0.2-1.0); Blood Urea Nitrogen 25 mg/dL (9-23); Carbon Dioxide 20 mmol/L (20-31); Chloride 113 mmol/L (98-107); Glucose 179 mg/dL (74-106)
[2025-02-12] MEDS ORDERED: INSULIN LANTUS (GLARGINE) 1 /0.01ml (100units/ml) SC SCH (10:00)
--- NOTE | 2025-02-12 10:05 | DVHPN2 ---
Progress Note Date Seen: Feb 12, 2025 Medical Necessity Reason Pt with a Central, PICC or Fol: No Subjective Patient reports: No new complaints Review of Systems: HEENT:Normal, CVS:Normal, RESPIRATORY:Normal, GI:Normal, :Normal, MSK:Normal, NEURO:Normal Objective vital signs Vital Sign Date Time Temp Pulse Resp B/P (MAP) Pulse Ox O2 Delivery O2 Flow Rate FiO2 02/12/25 09:00 97.7 110 16 145/80 (101) 96 97.7 02/11/25 20:00 Room Air* 0 21 Total Intake and Output 02/11/25 02/11/25 02/12/25 15:00 23:00 07:00 Intake Total 650 ml 440 ml Balance 650 ml 440 ml medications Current Medications Medications Dose Ordered Sig/Tino Route Start Time Stop Time Status Last Admin Dose Admin Ondansetron HCl 4 mg Q4HP PRN IV 02/11/25 01:00 Nitroglycerin 0.4 mg Q5MINP PRN SL 02/11/25 01:00 Morphine Sulfate 2 mg Q30M PRN IV 02/11/25 01:00 Sodium Chloride 1,000 ml @ 100 mls/hr Q10H IV 02/11/25 12:15 02/11/25 13:32 100 MLS/HR Insulin Glargine 15 units HS SC 02/11/25 22:00 02/11/25 22:00 15 UNITS Diagnostic Test (Pha) 1 strip IQ4HR 02/11/25 16:00 02/12/25 07:41 1 STRIP Insulin Human Regular IQ4HR SC 02/11/25 16:00 02/12/25 07:40 3 UNITS Dextrose 50 ml UD PRN IV 02/11/25 12:15 Ceftriaxone Sodium 50 ml @ 100 mls/hr DAILY@09 IV 02/12/25 09:00 02/12/25 08:58 100 MLS/HR Examination: GENERAL:Normal, HEENT:Normal, NECK:Normal, LUNGS:Normal, CVS:Normal, ABDOMEN:Normal, MSK:Normal, SKIN:Normal, NEURO:Normal, :Normal laboratory and microbiology Laboratory Tests 02/12/25 06:47 Test 02/12/25 06:47 Range/Units Serum Glucose 179 H 74-106 mg/dL Problem List/Assessment/Plan Problem List/Assessment/Plan #1 dka: lantus, ssi, ivf #2 acute renal failure ?vasomotor nephropathy #3 morbid obesity #4 htn #5 encephalopathy: metabolic #6 uti ?sepsis:iv rocephin #7 seizure disorder #8 ?dementia advance care planning- full code- time spent 18 mins Plan discussed with: Patient My Orders My Orders Orders - LIGIA MARTELL MD Procedure Category Date Status Time Consistent DIET 02/11/25 [facility]mitted [facility]Diabetes Lunch Sod Chl 0.45% (Sodium PHA 02/11/25 In Process Chloride 0.45% Via 12:15 Insulin Lantus PHA 02/11/25 In Process (Glargine) (Lantus) 22:00 Glucose Blood PHA 02/11/25 In Process (Accu-Chek Comfort 16:00 Insulin R (Human) PHA 02/11/25 In Process (Insulin R) 16:00 Dextrose 50% Syringe PHA 02/11/25 In Process 12:15 Transfer Orders XFER 02/11/25 Transmitted 12:01 Urine Bacterial ANTOINETTE 02/11/25 In Process Culture 12:01 Ceftriaxone 1gm/50ml PHA 02/12/25 In Process (Rocephin) 09:00 Insulin Lantus PHA 02/12/25 Verified (Glargine) (Lantus) 22:00 Levetiracetam Tablet PHA 02/12/25 Verified (Keppra Tablet) 10:00 Discontinue Mcgee AURELIA 02/12/25 Verified Catheter 09:58 Pt Request For Service PT 02/12/25 Verified 09:58 Basic Metabolic Panel LAB 02/13/25 Verified 06:00 Magnesium LAB 02/13/25 Verified 05:00 Date of Service: Feb 12, 2025 Billing Provider: LIGIA MARTELL MD Common Visit Codes: [id number] INP/OBS CARE(HIGH) Secondary Visit Codes: [id number] CARE PLAN 30 MINUTES LIGIA MARTELL MD Feb 12, 2025 10:05
[2025-02-12] MEDS: levETIRAcetam 500 MG TAB PO SCH (10:31)
[2025-02-12] MEDS: METOPROLOL TARTRATE 25 MG TAB PO ONE (10:31)
[2025-02-12] MEDS: DABIGATRAN 75 MG CAP PO SCH (21:59)
[2025-02-12] MEDS: METOPROLOL TARTRATE 25 MG TAB PO SCH (22:00)
[2025-02-12] MEDS: INSULIN LANTUS (GLARGINE) 1 /0.01ml (100units/ml) SC SCH (22:00)
[2025-02-13 01:00] VITALS: BP 110/58; PULSE 74; RESP 17; TEMP 98.1; O2SAT 97
[2025-02-13 05:00] VITALS: BP 114/84; PULSE 73; RESP 17; TEMP 97.9; O2SAT 96
[2025-02-13 07:30] LABS: Anion Gap 13 (5-15)
[2025-02-13 07:31] LABS: Calcium 9.0 mg/dL (8.7-10.4); Carbon Dioxide 19 mmol/L (20-31); Chloride 111 mmol/L (98-107); Potassium 3.8 mmol/L (3.5-5.1); Sodium 143 mmol/L (136-145)
[2025-02-13 07:36] LABS: BUN/Creatinine Ratio 14.6 (10.0-20.0); Blood Urea Nitrogen 20 mg/dL (9-23); Glucose 175 mg/dL (74-106); Magnesium 2.1 mg/dL (1.6-2.6)
[2025-02-13 08:00] VITALS: PULSE 77; PULSE 82; RESP 18; O2SAT 96
[2025-02-13 09:00] VITALS: BP 109/62; PULSE 80; RESP 18; TEMP 97.7; O2SAT 97
--- NOTE | 2025-02-13 10:26 | DVHDS2 ---
Discharge Summary Date of Admission Feb 11, 2025 at 01:00 Date of Discharge: Feb 13, 2025 Labs/Diagnostic Data: Laboratory Results Test 02/13/25 08:03 02/13/25 05:52 02/12/25 06:47 02/11/25 04:30 POC Glucose 181 mg/dl (70-106) Sodium Level 143 mmol/L (136-145) Potassium Level 3.8 mmol/L (3.5-5.1) Chloride Level 111 mmol/L (98-107) Carbon Dioxide Level 19 mmol/L (20-31) Anion Gap 13 (5-15) Blood Urea Nitrogen 20 mg/dL (9-23) Creatinine 1.37 mg/dL (0.550-1.02) Glomerular Filtration Rate Calc 40 mL/min (>90) BUN/Creatinine Ratio 14.6 (10.0-20.0) Serum Glucose 175 mg/dL (74-106) Calcium Level 9.0 mg/dL (8.7-10.4) Magnesium Level 2.1 mg/dL (1.6-2.6) White Blood Count 6.4 10^3/uL (4.4-10.8) Red Blood Count 4.68 10^6/uL (4.0-5.20) Hemoglobin 13.3 g/dL (12.2-16.2) Hematocrit 40.5 % (36.0-46.0) Mean Corpuscular Volume 86.7 fL (80.0-100.0) Mean Corpuscular Hemoglobin 28.5 pg (28.0-32.0) Mean Corpuscular Hemoglobin Concent 32.9 g/dL (32.0-36.0) Red Cell Distribution Width 14.4 % (11.8-14.3) Platelet Count 212 10^3/uL (140-450) Mean Platelet Volume 8.6 fL (6.9-10.8) Neutrophils (%) (Auto) 60.4 % (37.0-80.0) Lymphocytes (%) (Auto) 29.0 % (10.0-50.0) Monocytes (%) (Auto) 9.1 % (0.0-12.0) Eosinophils (%) (Auto) 0.9 % (0.0-7.0) Basophils (%) (Auto) 0.6 % (0.0-2.0) Neutrophils # (Auto) 3.9 10 ^3/uL (1.6-8.6) Lymphocytes # (Auto) 1.9 10 ^3/uL (0.4-5.4) Monocytes # (Auto) 0.6 10 ^3/uL (0-1.3) Eosinophils # (Auto) 0.1 10 ^3/uL (0-0.8) Basophils # (Auto) 0 10 ^3/uL (0-0.2) Nucleated Red Blood Cells 0.2 % Hemoglobin A1c 12.7 % A1C (<5.7) Total Bilirubin 0.4 mg/dL (0.2-1.0) Aspartate Amino Transferase (AST) 13 U/L (13-40) Alanine Aminotransferase (ALT) < 9 U/L (7-40) Alkaline Phosphatase 102 U/L (46-116) Total Protein 7.4 g/dL (5.7-8.2) Albumin 4.4 g/dL (3.2-4.8) Thyroid Stimulating Hormone (TSH) 0.69 uIU/mL (0.55-4.78) Urine Color Dark-brown (Yellow) Urine Clarity Ex.turbid (Clear) Urine pH 6.0 (5.0-9.0) Urine Specific Caroleen 1.024 (1.001-1.035) Urine Protein 3+ (Negative) Urine Ketones 1+ (Negative) Urine Blood 3+ /uL (Negative) Urine Nitrite Negative (Negative) Urine Bilirubin 1+ (Negative) Urine Urobilinogen 6 mg/dL (Negative) Urine Leukocyte Esterase 3+ /uL (Negative) Urine RBC 489 /hpf (0 - 4) Urine WBC Clumps Present /hpf (None Seen) Urine Microscopic WBC 3801 /HPF (0-5) Urine Squamous Epithelial Cells None seen /hpf (<5) Urine Bacteria None seen /hpf (None Seen) Urine Mucus Few (None Seen) Urine Yeast (Budding) Many /hpf (None Seen) Urine Glucose Normal mg/dL (Normal) Test 02/11/25 01:24 02/11/25 01:18 02/10/25 20:41 Serum Osmolality 339 mOsm/kg (278-298) Blood Gas Specimen Type Arterial Blood Gas Sample Site Right radial Blood Gas Patient Temperature 37.0 Arterial Blood Date Drawn Arterial Blood pH 7.295 (7.350-7.450) Arterial Blood Partial Pressure CO2 25.3 mmHg (32.0-45.0) Arterial Blood Partial Pressure O2 125.1 mmHg (83.0-108.0) Arterial Blood HCO3 12.0 mmol/L (21.0-28.0) Arterial Blood Oxygen Saturation 97.8 % (94.0-98.0) Arterial Blood Base Excess -12.6 mmol/L (-2.0-3.0) Arterial Blood Oxyhemoglobin 96.6 % (94.0-98.0) Arterial Blood Carboxyhemoglobin 0.9 % (0.5-1.5) Arterial Blood Methemoglobin 0.3 % (0.0-1.5) Arterial Blood Deoxyhemoglobin 2.2 % (0.0-5.0) Anthony Test Positive Blood Gas Total Hemoglobin 14.20 g/dL (12.0-16.0) Blood Gas Liter Flow 2.00 Blood Gas Modality Nasal cannula FiO2 % 29.0 Troponin I High Sensitivity 21 ng/L (</=34) Beta-Hydroxybutyric Acid > 4.500 mmol/L (< 0.4) Other Laboratory Tests 02/13/25 05:52 02/12/25 06:47 Brief Hx & Hospital Course: SEE DICTATED NOTE Condition at Discharge: Fair Final Diagnosis/Problems List DKA Discharge Disposition: Acute Care Facility Discharge Instruct/Medications Diet: Cardiac 2g Na,low cholest Activity: No Restrictions, As Tolerated Follow Up/Referral: FU WITH [facility] Medications: PER APR Scheduled Atorvastatin Calcium (Lipitor), 1 TAB PO DAILY, (Reported) Atorvastatin Calcium (Lipitor), 1 TAB PO DAILY, (Reported) Cephalexin (Keflex Capsule), 500 MG PO BID, (Reported) Dabigatran Etexilate Mesylate (Pradaxa), 1 CAP PO BID, (Reported) Dabigatran Etexilate Mesylate (Pradaxa), 1 CAP PO BID, (Reported) Levetiracetam (Keppra), 500 TAB PO BID, (Reported) Levetiracetam (Keppra), 500 TAB PO BID, (Reported) Losartan Potassium (Losartan Potassium), 1 TAB PO DAILY, (Reported) Losartan Potassium (Losartan Potassium), 1 TAB PO DAILY, (Reported) Discharge Statement: "Patient was advised to return to the ER or call 911 if any headaches, dizziness, shortness of breath, chest pain, abdominal pain, bleeding, fevers, or worsening of medical condition. Patient was counseled about treatment plan, medications, possible side effects, patientverbalized understanding. All questions were answered to the best of my ability. This discharge took greater then 30 minutes in planning, reviewing documentation, counseling the patient, and discussing with other team members." ASSESSMENT ASSESSMENT Assessment DKA Date of Service: Feb 13, 2025 Billing Provider: LIGIA MARTELL MD Common Visit Codes: [id number] DISCH DAY >30min LIGIA MARTELL MD Feb 13, 2025 10:26
--- NOTE | 2025-02-13 11:25 | DVHDS ---
DATE OF DISCHARGE: 02/13/2025 HISTORY OF PRESENT ILLNESS: The patient is a 79-year-old lady who is admitted with altered level of consciousness and increasing blood sugars. The patient has a history of diabetes, hypertension, atrial fibrillation, and questionable dementia. HOSPITAL COURSE: The patient had a CT of head that showed no acute intracranial abnormality. The patient was in diabetic ketoacidosis with blood sugar initially recorded greater than 600. The patient was in renal failure with a creatinine of 2.6. The patient was placed on insulin drip and subsequently on sliding scale insulin. Creatinine now improved to 1.37. The patient's urine has grown yeast. The patient will now be transferred to [place] for further treatment. FINAL DIAGNOSES: * Diabetic ketoacidosis. * Acute renal failure, questionable vasomotor nephropathy. * UTI with yeast, questionable sepsis. * Morbid obesity. * Hypertension. * Encephalopathy, likely metabolic. * Seizure disorder. * Questionable dementia. * History of atrial fibrillation with secondary hypercoagulable state. Time spent in discharge planning and review of plan with the patient and nursing was 39 minutes. MD NATALIE Galvan/IRENE TID: [id number] RECEIPT: [id number]
[2025-02-13] MEDS: FLUCONAZOLE 200MG/100ML 100 ML IV ONE (12:10)
[2025-02-13 13:00] VITALS: BP 100/68; PULSE 86; RESP 18; TEMP 98; O2SAT 97
[2025-02-13 17:00] VITALS: BP 114/58; PULSE 96; RESP 17; TEMP 98.2; O2SAT 95
[2025-02-14] MEDS ORDERED: FLUCONAZOLE 200MG/100ML 100 ML IV SCH (10:00)
== END 2025-02-13 17:58 | disposition left against medical advice (07) | DRG 871 ==
LOC: ER 18:36 → EDBD 18:36 → OVERFLOW 02-11 01:00 → TELE-CENTR 02-11 18:05
PROVIDERS: ADMIT Internal Medicine; ATTEND Internal Medicine
PROC: 5A09357 Assistance with Respiratory Ventilation, Less than 24 Consecutive Hours, Continuous Positive Airway Pressure (ICD-10-PCS; principal; 2025-02-11)
DX: A41.9 Sepsis, unspecified organism (principal); E10.10 Type 1 diabetes mellitus with ketoacidosis without coma; N17.0 Acute kidney failure with tubular necrosis; G93.41 Metabolic encephalopathy; D68.69 Other thrombophilia; I48.91 Unspecified atrial fibrillation; E86.0 Dehydration; N39.0 Urinary tract infection, site not specified; E66.01 Morbid (severe) obesity due to excess calories; I10 Essential (primary) hypertension; G40.909 Epilepsy, unspecified, not intractable, without status epilepticus; F03.90 Unspecified dementia, unspecified severity, without behavioral disturbance, psychotic disturbance, mood disturbance, and anxiety; Z53.29 Procedure and treatment not carried out because of patient's decision for other reasons; Z68.35 Body mass index [BMI] 35.0-35.9, adult
CPT/HCPCS: 36415; 70450; 71045; 80048; 80053; 81001; 82010; 82962; 83036; 83735; 83930; 84443; 84484; 85025; 87086; 87088; 97163; 99291; G0378; J1450; J1815